=== PATIENT | female | born 1985 | race African-American/Black ===

== ENCOUNTER 2016-12-14 09:08 | Emergency (ER) | payer OTHER ==
[~2016-12-14] VITALS: Ht 170.2 cm; Wt 147.4 kg
--- NOTE | ~2016-12-14 | EKG ---
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
[~2016-12-14 09:08] MED LIST: ALLEGRA ALLERG180 MG PO; AMOXICILLIN 50500 M1 PO; CORTISPORIN OTI10 ML OTIC; FLONASE16 GM INH; IBUPROFEN 800800 MG PO; MACROBID 100 M100 M1 PO; NAPROSYN500 MG PO; NOHOMEMEDICATIONS; NORCO 5-325 TA1 EACH PO; NORFLEX100 MG PO; ULTRAM50 MG PO; ZPAK
[2016-12-14 09:46] LABS: URINE BILIRUBIN NEGATIVE (Negative); URINE BLOOD NEGATIVE (Negative); URINE COLOR YELLOW; URINE GLUCOSE-RANDOM* NEGATIVE (Negative); URINE KETONES NEGATIVE (Negative); URINE LEUKOCYTES-REFLEX NEGATIVE (Negative); URINE PROTEIN (DIPSTICK) NEGATIVE (Negative); URINE UROBILINOGEN 0.2 E.U./dl (0.2-1.0)
[2016-12-14 09:47] LABS: ABSOLUTE NEUTROPHILS 4.3 thou/uL (1.4-8.2); BASOPHILS 0.8 % (0.0-2.0); HEMATOCRIT 37.3 % (37.0-47.0); HEMOGLOBIN 11.6 gm/dL (12.0-15.0); MCH 20.9 pg (26.0-34.0); MCV 67.6 fL (80.0-100.0); MONOCYTES 4.2 % (1.0-8.0); PLATELET COUNT 345 thou/uL (150-400); RBC 5.51 mil/uL (4.20-5.00); WBC 6.6 thou/uL (4.0-11.0)
[2016-12-14 09:49] LABS: MANUAL DIFF NO
[2016-12-14 09:51] LABS: CALCIUM 8.5 mg/dL (8.5-10.1); CREATININE 0.8 mg/dL (0.6-1.3); POTASSIUM 4.1 mmol/L (3.5-5.1)
[2016-12-14 09:58] LABS: ALBUMIN 3.3 g/dL (3.4-5.0); TOTAL BILIRUBIN 0.3 mg/dL (<0.1-1.0); TOTAL PROTEIN 8.1 g/dL (6.4-8.2)
[2016-12-14 10:10] LABS: ANISOCYTOSIS 1+; MICROCYTES 2+; PLATELET ESTIMATE NORMAL
[2016-12-14] MEDS ORDERED: PEPCID20 MG PO (10:36)
[2016-12-14 10:41] VITALS: BP 141/90
[2017-01-09] MEDS ORDERED: CLEOCIN HCL300 MG PO (16:13)
[2017-01-09] MEDS ORDERED: IBUPROFEN 600600 M1 PO (16:13)
== END 2016-12-14 10:42 | disposition home or self-care (01) ==
LOC: ER 09:08
PROVIDERS: Physician Assistant
DX: D64.9 Anemia, unspecified (principal); R10.13 Epigastric pain; R12 Heartburn; F10.99 Alcohol use, unspecified with unspecified alcohol-induced disorder

== ENCOUNTER 2017-03-24 05:01 | Emergency (ER) | payer OTHER ==
[~2017-03-24] VITALS: Ht 170.2 cm; Wt 147.4 kg
[~2017-03-24 05:01] MED LIST changes: +CLEOCIN HCL300 MG PO; +IBUPROFEN 600600 M1 PO; +PEPCID20 MG PO
[2017-03-24] MEDS ORDERED: LISINOPRIL10 MG PO (05:10)
[2017-03-24 05:46] LABS: ABSOLUTE NEUTROPHILS 4.4 thou/uL (1.4-8.2); EOSINOPHILS 1.6 % (0.0-3.0); HEMATOCRIT 35.6 % (37.0-47.0); LYMPHOCYTES 25.5 % (24.0-44.0); MONOCYTES 5.2 % (1.0-8.0); PLATELET COUNT 351 thou/uL (150-400); POLYS 66.7 % (36.0-66.0); RBC 5.24 mil/uL (4.20-5.00); RDW 15.8 % (10.5-14.5); WBC 6.6 thou/uL (4.0-11.0)
[2017-03-24 05:51] LABS: CALCIUM 8.7 mg/dL (8.5-10.1); CREATININE 0.9 mg/dL (0.6-1.0); POTASSIUM 3.8 mmol/L (3.5-5.1)
[2017-03-24 05:53] LABS: MANUAL DIFF NO
[2017-03-24 05:55] LABS: ALBUMIN 3.5 g/dL (3.4-5.0); DIRECT BILIRUBIN 0.1 mg/dL (<0.1-0.3); TOTAL BILIRUBIN 0.5 mg/dL (<0.1-1.0); TOTAL PROTEIN 8.3 g/dL (6.4-8.2)
[2017-03-24] MEDS ORDERED: ZOFRAN ODT4 MG PO (07:32)
[2017-03-24] MEDS ORDERED: PHENERGAN 25 MG25 M1 PO (07:32)
[2017-03-24 07:48] VITALS: BP 169/98
[2017-03-24 08:37] LABS: ANISOCYTOSIS 1+; HYPOCHROMASIA 1+; MICROCYTES 2+
== END 2017-03-24 07:52 | disposition still patient (30) ==
LOC: ER 05:01
PROVIDERS: Emergency Medicine
DX: R10.13 Epigastric pain (principal); R11.2 Nausea with vomiting, unspecified; I10 Essential (primary) hypertension

== ENCOUNTER 2017-09-03 15:31 | Inpatient (IN) | payer OTHER ==
[~2017-09-03] VITALS: Ht 170.2 cm; Wt 156.0 kg
--- NOTE | ~2017-09-03 | S ---
[facility] [place] [address] [place] [address] SURGICAL PATH RPT PROCEDURE Name: EHSAN MATUTE Room #: 447-P [facility] IN M.R.#: [id number] Admission: 09/03/17 Date of : 81 Discharge: 09/04/17 Report #: [id number] Path Case #: [id number] PATHOLOGY REPORT COLLECTION DATE: 09/04/2017 RECEIVED DATE: 09/04/2017 SUBMITTING PHYS: Dr. Nathan Yepez OTHER PHYS: Dr. Napoleon Cotton SPECIMEN(S) RECEIVED: A.Gallbladder * * * * * * * * * * * * FINAL DIAGNOSIS: Gallbladder, cholecystectomy: - Moderate acute and hemorrhagic cholecystitis. - Cholelithiasis. PATHOLOGIST: Stephanie Sales M.D. REPORT ELECTRONICALLY SIGNED BY: Stephanie Sales M.D. DATE/TIME: 09/06/2017 15:03 * * * * * * * * * * * * GROSS PATHOLOGY: Received in formalin labeled "Ehsan Matute gallbladder," is a 8.5 x 4.3 x 3.4 cm, previously opened gallbladder with dark stone to pink, vascular serosal surfaces. Opening the gallbladder reveals dark stone, grainy mucosa, rippled with yellow highlights, and an average wall thickness of 0.3 cm. Calculi are present, measuring 0.2-0.6 cm in maximum dimension, possessing a dark stone color, and feeling friable to the touch. No masses are noted grossly. Farm Implement Mechanic sections from the body and fundus are submitted along with the proximal margin in cassette A1. (TSD; 09/04/2017) CLINICAL HISTORY: Pre-OP DX: Cholelithiasis, cholecystitis Post-OP DX: Acute hemorrhagic cholecystitis INITIAL CPT CODE(S): A; 56734 Professional services performed by [facility] at [facility] [address] , [place] [address] [facility] [address] [place] [address] SURGICAL PATH RPT PROCEDURE Name: EHSAN MATUTE Room #: 447-P [facility].#: [id number] Admission: 09/03/17 Date of : 81 Discharge: 09/04/17 Report #: [id number] Path Case #: [id number] Technical [facility] by [facility] at [address] [place] [address], [place] [address]. [place] [address] PHONE: [phone] DIRECTOR: Jhony Lei M.D. * * * END OF REPORT * * *
--- NOTE | ~2017-09-03 | HC ---
[facility] [place] [address] CONSULTATION Name: GIOVANIJAKE Valenzuela Room #: 447-P [facility]..#: [id number] Admission: 09/03/17 Attend Phys: [facility] Dis[facility]: 09/04/17 Date of : 81 Report #: [id number] THIS REPORT FOR: //name// CC: Nathan Cotton DATE OF SERVICE: 09/03/2017 TYPE OF REPORT: General surgery consultation. REASON FOR CONSULTATION: Abdominal pain. HISTORY OF PRESENT ILLNESS: This is a super morbidly obese 31-year-old -[place] female patient who was seen in the [place] [facility] with a 3-4 day history of abdominal pain, nausea, vomiting, fever and chills. Her pain occurs postprandially. She has had biliary colic symptoms off and on over the past year. She was seen at the [place] [facility] earlier today and was dismissed home. Due to continued symptoms, she elected to visit the [place] [facility]. She underwent a CT of the abdomen and pelvis, which revealed gallbladder wall thickening and pericholecystic fat stranding. No gallstones were identified and the common bile duct was without dilatation. Ultrasound at [place] showed cholelithiasis and cholecystitis changes. I have been asked to see the patient for further evaluation and treatment. PAST MEDICAL HISTORY: Significant for hypertension, asthma and obesity. PAST SURGICAL HISTORY: Denies. MEDICATIONS: Fosinopril and albuterol. ALLERGIES: No known drug allergies. FAMILY HISTORY: Significant for obstructive sleep apnea and hypertension in her mother. Her father has heart disease. SOCIAL HISTORY: The patient denies use of tobacco, alcohol or illicit drugs. 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 REVIEW OF SYSTEMS: As per history of present illness and in addition: GENERAL: The patient denies unintentional weight loss, reports intermittent fever and chills, worse over the past few days. HEENT: Denies changes in taste, vision, hearing or smell. RESPIRATORY: Denies shortness of breath or COPD and has a history of asthma. CARDIOVASCULAR: Denies chest pain or palpitations and history of hypertension. GASTROINTESTINAL: As per history of present illness. Denies bright red blood per rectum. [facility] [address] [place] [address] CONSULTATION Name: JAKE MATUTE Room #: 447-P [facility] IN ..#: [id number] Admission: 09/03/17 Attend Phys: Nathan Yepez MD, FAAF Discharge: 09/04/17 Date of : 81 Report #: [id number] GENITOURINARY: Denies dysuria or urgency. Increased urinary frequency or hematuria. MUSCULOSKELETAL: Denies myalgia. Reports joint pain. NEUROLOGICAL: Denies headaches, numbness or tingling. PSYCHIATRIC: Denies depression, anxiety or suicidal ideations. SKIN AND INTEGUMENTARY: Denies new skin lesions, rashes or moles. ENDOCRINE: Denies polydipsia, polyuria, heat or cold intolerance. HEMATOLOGIC: Denies easy bleeding, bruising or anemia. LABORATORY DATA: CBC shows a white blood cell count of 7.6, hemoglobin 11.7, hematocrit 37.3 and platelets 361 with 77% segmented neutrophils. Comprehensive metabolic profile shows sodium 136, potassium 3.7, chloride 103, CO2 of 26, BUN 6, creatinine 0.9 and glucose 96. Liver function tests are within normal limits. Urinalysis shows 1+ leukocytes, 1-9 bacteria and 6-15 white blood cells. HCG was negative. INR 1.2. RADIOLOGIC STUDIES: CT abdomen and pelvis, findings are as noted above. IMPRESSION AND PLAN: This is a super morbidly obese 31-year-old female patient, (body mass index 54) with a history of asthma and hypertension; who has abdominal pain and radiologic findings consistent with acute cholecystitis. Gallstones were seen on ultrasound at a different facility. We discussed the pathophysiology and natural history of biliary disease as well as the treatment alternatives and surgical options. The patient would benefit from laparoscopic cholecystectomy. We discussed the risks, benefits and expectations of the operation in detail. The patient expressed understanding and wishes to proceed. She will be scheduled to undergo the operation at the next earliest availability. I sincerely appreciate the opportunity to participate in the care of this patient and we will leave further recommendations and orders in the electronic medical record as appropriate. <ELECTRONICALLY SIGNED> By: Napoleon Cotton MD, FACS 09/05/17 0716 0554 [id number] Napoleon Cotton MD, FACS /nt
--- NOTE | ~2017-09-03 | O ---
[facility] [place] [address] [place] [address] OPERATIVE REPORT Name: JAKE MATUTE Room #: 447-P [facility] IN M.R.#: [id number] Admission: 09/03/17 Attend Phys: Nathan Yepez MD, [facility] Discharge: 09/04/17 Date of : 81 Report #: [id number] THIS REPORT FOR: //name// CC: Nathan Yepez MD PREOPERATIVE DIAGNOSES: 1. Acute cholecystitis. 2. Super morbid obesity (body mass index 54). 3. Hypertension. 4. Asthma. POSTOPERATIVE DIAGNOSES: 1. Acute hemorrhagic cholecystitis. 2. Super morbid obesity (body mass index 54). 3. Hypertension. 4. Asthma. SURGEON: Napoleon Cotton MD BIBLE READER: Wayne Millan DO PROCEDURE: Laparoscopic cholecystectomy with intraoperative cholangiogram. ANESTHESIA: General endotracheal anesthesia and local anesthetic. ESTIMATED BLOOD LOSS: 5 mL. SPECIMEN: Gallbladder. COMPLICATIONS: None appreciated. INDICATIONS FOR PROCEDURE: DICTATION ENDS HERE. By: [id number] Napoleon Cotton MD, FACS /nt
--- NOTE | ~2017-09-03 | O ---
[facility] [place] [address] OPERATIVE REPORT Name: JAKE MATUTE Room #: 447-P [facility] IN M.R.#: [id number] Admission: 09/03/17 Attend Phys: [facility]pez MD, [facility] Discharge: 09/04/17 Date of : 81 Report #: [id number] THIS REPORT FOR: //name// CC: Nathan Yepez MD Continuation of the dictation #[id number]. PROCEDURE: Laparoscopic cholecystectomy with intraoperative cholangiogram. ANESTHESIA: General endotracheal anesthesia and local anesthetic. ESTIMATED BLOOD LOSS: 5 mL. SPECIMEN: Gallbladder. COMPLICATIONS: None appreciated. INDICATIONS FOR PROCEDURE: This is a super morbidly obese 31-year-old female patient who was seen in [facility] with a 3-4 day history of abdominal pain, nausea, vomiting, fever and chills. Her pain occurred postprandially. She has had biliary colic symptoms intermittently over the past year. She was seen at the [place] earlier and dismissed home. She presented to [facility] later that day with continued and worsened symptoms. CT of the abdomen and pelvis showed gallbladder wall thickening and pericholecystic fat stranding without identification of gallstones. Ultrasound at [place] showed cholelithiasis and cholecystitis changes. The patient presents now for laparoscopic cholecystectomy with cholangiogram. OPERATIVE FINDINGS: Upon entrance into the abdominal cavity, the gallbladder appeared to be acutely inflamed. The liver had changes of steatosis without aniyah steatohepatitis. The stomach, small bowel and colon in the surrounding area appeared otherwise normal. The gallbladder wall was thickened. The critical view consisting of cystic artery, cystic duct and lower edge of the gallbladder forming a window through which the liver was visible was seen prior to clipping the cystic duct for cholangiogram. The cholangiogram showed flow of contrast into the duodenal sweep and no filling defects were identified. The biliary radicles appeared normal. Three clips remained on the cystic duct stump after its division. No other significant intraabdominal pathology was identified. At the conclusion of the operation, sponge, needle, and the instrument counts were correct. The gallbladder was opened on the back table. Hemorrhagic cholecystitis was identified. Multiple mixed medium size gallstones were present. DESCRIPTION OF PROCEDURE IN DETAIL: After the benefits and risks of the procedure were explained to the patient which include but are not limited to [address] [address] OPERATIVE REPORT Name: GIOVANINAVDEEPMAYRASharri Valenzuela Room #: 447-P [facility] IN [facility]#: [id number] Admission: 09/03/17 Attend Phys: Nathan Yepez MD, [facility] Discharge: 09/04/17 Date of : 81 Report #: [id number] risks of bleeding, infection, injury to the biliary tree, injury to adjacent organs, risk of DVT, pulmonary embolus, postoperative pain and postoperative expectations informed consent was obtained. The patient was identified in the preoperative holding area. The patient was then given IV antibiotics as documented in the chart to comply with the SCIP protocol. The patient was taken to the operating room and was placed in the supine position. The patient was given IV sedation and was intubated without incident. A time-out was performed to correctly identify the patient and procedure. SCDs were placed on the patient's bilateral lower extremities. The patient's abdomen was then prepped and draped in the standard sterile fashion with ChloraPrep. Local anesthetic was infiltrated into the skin and subcutaneous tissue. A periumbilical incision was made with a #15 blade scalpel. The 11-mm Visiport was then placed intraperitoneally with the 10-mm 0-degree angled laparoscope. After confirmation of placement within the peritoneal cavity, the scope was changed to a 10-mm 30 degree angled laparoscope and pneumoperitoneum was achieved with insufflation of carbon dioxide. The patient was placed in the reverse Trendelenburg position, rotated to the patient's left. A subxiphoid 5 mm and right subcostal 5 mm ports times 2 were placed under direct visualization after local anesthetic was infiltrated into the skin and subcutaneous tissue and appropriately sized incisions were made. Operative findings are as noted above. The dome of the gallbladder was retracted in a cephalad direction. The gallbladder peritoneum was scored medially and laterally after takedown of the adhesions to the gallbladder. Dissection was carried out around the cystic artery and cystic duct to identify each structure as entering directly into the gallbladder. The critical view as described above was seen. A Hemoclip was then placed on the cystic duct at its junction with the gallbladder. A ductotomy was made and the cholangiocatheter was passed into the cystic duct. A clip was placed, contrast was then injected and cholangiogram findings are as noted above. The cholangiocatheter was then removed and the cystic duct was triply clipped distal to the ductotomy. The duct was divided at the ductotomy site with the Harmonic scalpel. The cystic artery was then divided with the Harmonic scalpel as well. The gallbladder was then dissected off the liver bed with the Harmonic scalpel and after fully removing the gallbladder, it was placed in an Endopouch and then removed through the periumbilical port site. The abdominal cavity was then reentered. Other operative findings are as noted above. The liver bed was made hemostatic with a combination of electrocautery and a combination of electrocautery and other hemostatic agent as documented in the chart. After ensuring final hemostasis and ensuring that the clips were secure, the periumbilical port site fascial opening was closed with a simple interrupted 0 PDS suture under direct visualization using the OralWise laparoscopic fascial closure device. The ports were removed and the abdominal cavity was desufflated. The fascial suture was tied. Interrupted subcuticular 4-0 Monocryl sutures and Dermabond were used to close the skin. The patient tolerated the procedure well. The patient was awakened, extubated and taken to [address] [address] OPERATIVE REPORT Name: GIOVANINAVDEEPMAYRASharri Valenzuela Room #: 447-P [facility]#: [id number] Admission: 09/03/17 Attend Phys: Nathan Yepez MD, FAAF Discharge: 09/04/17 Date of : 81 Report #: [id number] the recovery room in stable condition with no apparent intraoperative complications. By: [id number] Napoleon Cotton MD, FACS /nt
--- NOTE | ~2017-09-03 | H ---
[facility] [place] [address] HISTORY AND PHYSICAL Name: KANNAN MATUTE Room #: 170-1 ADM IN M.R.#: [id number] Admission: 09/03/17 Attend Phys: Nathan Yepez MD, FAAF Discharge: Date of : 81 Report #: [id number] THIS REPORT FOR: //name// CC: Nathan Yepez MD DATE OF SERVICE: 09/03/2017 LOCATION: Room 447. HISTORY OF PRESENT ILLNESS: This 31-year-old black female was admitted through the Emergency Room with acute cholecystitis and cholelithiasis. The patient states she has been sick for several weeks with nausea, postprandial abdominal pain and vomiting. She has vomited at least 3 or 4 times in the last 24 hours. She had gone earlier today to [facility] [facility] where she was evaluated and sent home with a diagnosis of cholecystitis and apparently was told to call the surgeon tomorrow. Because of increasing pain and nausea and vomiting, she came to [facility] Room where she has been evaluated and is being admitted for aggressive care. PAST MEDICAL HISTORY: Denies any previous admissions or surgeries. She has mild asthma, but she uses albuterol as needed and hypertension. 0, para 0. MEDICATIONS ON ADMISSION: Lisinopril 10 mg b.i.d. and also albuterol inhaler p.r.n. ALLERGIES: None. 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 Denies alcohol or cigarette use. Denies any chance of . FAMILY HISTORY: Her parents are here with her and both of them have had their gallbladders out for gallstones. PHYSICAL EXAMINATION: GENERAL: Pleasant, obese black female, looking ill. VITAL SIGNS: Blood pressure 155/89, pulse 83, respiration 14, temperature 37.0. HEAD: No rash or trauma. EARS, NOSE AND THROAT: No lesions. Mucosa is relatively dry. EYES: No icterus. NECK: Supple. LUNGS: Clear. Cough is dry. HEART: Rhythm regular without murmur or gallop. ABDOMEN: Obese, but very tender across the epigastrium, with some generalized tenderness across the upper abdomen, with some rebound in the right upper [facility] [address] [place] [address] HISTORY AND PHYSICAL Name: KANNAN MATUTE Room #: [address] [place] [address] [place] [facility]#: [id number] Admission: 09/03/17 Attend Phys: Nathan Yepez MD, FAAF Discharge: Date of : 81 Report #: [id number]. Bowel sounds are hypoactive. EXTREMITIES: No edema. SKIN: She has tattoos on both upper breasts. NEUROLOGIC: Alert and well oriented. No lateralized deficits. LABORATORY DATA: White count of 7600 with a leftward shift, hemoglobin 11.7, platelets 261,000. Sodium 136, potassium 3.7, CO2 of 26, BUN 6, creatinine 0.9, blood sugar 96. Liver enzymes reveal AST and ALT are below normal, alkaline phosphatase normal, albumin and lipase normal. Serum test negative. CAT scan of the abdomen and pelvis reveals thickening of the gallbladder wall consistent with cholecystitis, otherwise negative. Abdominal sonogram done at [facility] revealed cholecystitis and cholelithiasis. IMPRESSION: 1. Acute cholecystitis with cholelithiasis. 2. History of hypertension. 3. History of asthma. 4. Obesity. PLAN: Admit on IV antibiotics. General surgery and GI to see. We will use broad spectrum antibiotics and intravenous proton pump inhibitor. Offer clear liquids sparingly, fentanyl for pain control. By: [id number] Jr Barney, /nt
[~2017-09-03 15:31] MED LIST changes: +LISINOPRIL10 MG PO; +PHENERGAN 25 MG25 M1 PO; +ZOFRAN ODT4 MG PO
[2017-09-03 15:37] VITALS: BP 182/117
[2017-09-03 16:35] LABS: ABSOLUTE NEUTROPHILS 5.8 thou/uL (1.4-8.2); BASOPHILS 0.7 % (0.0-2.0); EOSINOPHILS 0.7 % (0.0-3.0); HEMATOCRIT 37.3 % (37.0-47.0); HEMOGLOBIN 11.7 gm/dL (12.0-15.0); LYMPHOCYTES 15.9 % (24.0-44.0); MCH 21.8 pg (26.0-34.0); MCHC 31.4 g/dL (28.0-37.0); MCV 69.5 fL (80.0-100.0); MONOCYTES 6.1 % (1.0-8.0); PLATELET COUNT 361 thou/uL (150-400); POLYS 76.6 % (36.0-66.0); RBC 5.37 mil/uL (4.20-5.00); RDW 16.5 % (10.5-14.5); WBC 7.6 thou/uL (4.0-11.0)
[2017-09-03 16:35] LABS: URINE BILIRUBIN NEGATIVE (Negative); URINE BLOOD NEGATIVE (Negative); URINE COLOR YELLOW; URINE GLUCOSE-RANDOM* NEGATIVE (Negative); URINE KETONES NEGATIVE (Negative); URINE NITRITE NEGATIVE (Negative); URINE PROTEIN (DIPSTICK) NEGATIVE (Negative); URINE SPECIFIC GRAVITY 1.015 (1.003-1.035); URINE UROBILINOGEN 0.2 E.U./dl (0.2-1.0)
[2017-09-03 16:37] LABS: MANUAL DIFF NO
[2017-09-03 16:39] LABS: CALCIUM 9.3 mg/dL (8.5-10.1); CREATININE 0.9 mg/dL (0.6-1.0); POTASSIUM 3.7 mmol/L (3.5-5.1)
[2017-09-03 16:40] LABS: CASTS None Seen /LPF (None Seen); CRYSTALS None Seen /LPF (None Seen); SQUAMOUS >10 Many /LPF (0-3)
[2017-09-03 16:41] LABS: BACTERIA 1-9 Few /HPF (None Seen); URINE RBC None Seen /HPF (0-2); URINE WBC 6-15 Few /HPF (0-5)
[2017-09-03 16:42] LABS: AMORPHOUS PHOSPHATES Few /LPF (None Seen)
[2017-09-03 16:45] LABS: ALBUMIN 3.4 g/dL (3.4-5.0); TOTAL BILIRUBIN 0.5 mg/dL (<0.1-1.0); TOTAL PROTEIN 8.3 g/dL (6.4-8.2)
[2017-09-03 16:59] LABS: ANISOCYTOSIS 1+; MACROCYTES 1+; MICROCYTES SLIGHT
[2017-09-03 17:41] VITALS: BP 155/89
[2017-09-03 18:23] LABS: INR 1.2; PROTIME 11.9 Seconds (9.3-11.4)
[2017-09-03 19:00] VITALS: BP 145/72
[2017-09-03 19:11] VITALS: BP 144/85
[2017-09-04] VITALS (7 sets, daily range): BP systolic 102–149; BP diastolic 66–95
[2017-09-04 05:06] LABS: ABSOLUTE NEUTROPHILS 5.4 thou/uL (1.4-8.2); BASOPHILS 0.4 % (0.0-2.0); EOSINOPHILS 2.3 % (0.0-3.0); HEMATOCRIT 34.5 % (37.0-47.0); HEMOGLOBIN 10.6 gm/dL (12.0-15.0); LYMPHOCYTES 20.2 % (24.0-44.0); MCH 21.5 pg (26.0-34.0); MCHC 30.7 g/dL (28.0-37.0); MCV 69.9 fL (80.0-100.0); MONOCYTES 8.5 % (1.0-8.0); PLATELET COUNT 298 thou/uL (150-400); POLYS 68.6 % (36.0-66.0); RBC 4.94 mil/uL (4.20-5.00); RDW 16.1 % (10.5-14.5); WBC 7.9 thou/uL (4.0-11.0)
[2017-09-04 05:11] LABS: MANUAL DIFF NO
[2017-09-04 05:27] LABS: ALBUMIN 2.7 g/dL (3.4-5.0); CALCIUM 8.8 mg/dL (8.5-10.1); CREATININE 0.9 mg/dL (0.6-1.0); POTASSIUM 3.4 mmol/L (3.5-5.1); TOTAL BILIRUBIN 0.8 mg/dL (<0.1-1.0); TOTAL PROTEIN 7.3 g/dL (6.4-8.2)
[2017-09-04 05:43] LABS: ANISOCYTOSIS 1+; HYPOCHROMASIA 1+; MICROCYTES 2+
[2017-09-04] MEDS ORDERED: SENNA-S TABLET1 EACH PO (09:06)
[2017-09-04] MEDS ORDERED: HYDROCODONE-AP1 EAC6 PO (09:06)
== END 2017-09-04 17:15 | disposition home or self-care (01) | DRG 418 ==
LOC: ER 15:31 → 4S 17:23 → EROBS 17:23 → 4S 19:00 → ENTRNSPT 09-04 17:00 → 4S 09-04 17:15 → EDTRNSPT 09-04 17:15
PROVIDERS: Nurse Practitioner Family
PROC: BF141ZZ Fluoroscopy of Gallbladder, Bile Ducts and Pancreatic Ducts using Low Osmolar Contrast (ICD-10-PCS; principal; 2017-09-04)
PROC: 0FT44ZZ Resection of Gallbladder, Percutaneous Endoscopic Approach (ICD-10-PCS; principal; 2017-09-04)
DX: K80.00 Calculus of gallbladder with acute cholecystitis without obstruction (principal); Z68.43 Body mass index [BMI] 50.0-59.9, adult; I10 Essential (primary) hypertension; E66.01 Morbid (severe) obesity due to excess calories; J45.909 Unspecified asthma, uncomplicated; Z83.6 Family history of other diseases of the respiratory system; Z82.49 Family history of ischemic heart disease and other diseases of the circulatory system
CPT/HCPCS: 10195; 50010; 50101; 50249; 50411; 50555; 50558; 50962; 51489; 51975; 52265; 52266; 53307; 54022; 54118; 55245; 55317; 56462; 56525; 56526; 56970; 62110; 62900; 70005